=== PATIENT | female | born 1935 | race Caucasian/White ===

== ENCOUNTER 2021-10-02 11:41 | Inpatient (IN) | payer OTHER ==
[~2021-10-02] VITALS: Ht 154.9 cm; Wt 59.0 kg
[~2021-10-02 11:41] MED LIST: ASA; INSULIN; ISOSORBIDE; LIPITOR; PLAVIX
--- NOTE | 2021-10-02 11:53 | NUR ---
BIB WHEELCHAIR TO ER BED 6
--- NOTE | 2021-10-02 11:55 | NUR ---
PATIENT PLACED IN GOWN ON PORTABLE TELE MONITOR, TAKEN TO CT FOR CODE BRAIN PER DR. GLORIA. RN AND BUILDING TRADES TEACHER ACCOMPANIED DAY CAMP UNIT LEADER.
[2021-10-02 12:00] VITALS: BP 149/56
--- NOTE | 2021-10-02 12:37 | NUR ---
86/F BIB DAUGHTER WITH C/O WEAKNESS AND DIZZINESS SINCE THIS MORNING. PER DAUGHTER PATIENT CALLED HER THIS MORNING STATING "I DONT FEEL LIKE MYSELF." FURTHER STATING PATIENT WAS FORGETTING THINGS EASILY WHICH IS NOT AT BASELINE FOR PATIENT. PATIENT DENIES BLURRED VISION, CP, SOB, N/V/D. PATIENT UNABLE TO RECALL DATE BUT IS ALERT TO SELF AND SITUATION.
--- NOTE | 2021-10-02 12:51 | NUR ---
ATTEMPTED COLLECT URINE . WALKED PT AND ASSISTED BUT WAS UNABLE TO COLLECT.
--- NOTE | 2021-10-02 12:52 | NUR ---
WALKED OVER NAKUL TEST TO LAB
[2021-10-02 13:04] LABS: BASOPHILS # (AUTO) 0.1 K/uL (0.00-0.22); EOSINOPHILS # (AUTO) 0.1 K/uL (0-0.4); EOSINOPHILS % (AUTO) 0.9 % (0.0-4.0); HEMATOCRIT 40.7 % (36-48); HEMOGLOBIN 13.5 g/dL (12.0-16.0); LYMPHOCYTES # (AUTO) 2.9 K/uL (2.5-16.5); LYMPHOCYTES % (AUTO) 32.2 % (20.5-51.1); MEAN CORPUSCULAR HEMOGLOBIN 29 pg (27-31); MEAN CORPUSCULAR HGB CONC 33 g/dL (33-37); MEAN CORPUSCULAR VOLUME 88.3 fL (80-94); MONOCYTES # (AUTO) 0.8 K/uL (0.8-1.0); MONOCYTES % (AUTO) 8.7 % (1.7-9.3); NEUTROPHILS # (AUTO) 5.2 K/uL (1.8-7.7); NEUTROPHILS % (AUTO) 57.2 % (42.2-75.2); PLATELET COUNT (AUTO) 162 K/uL (140-450); RED BLOOD CELL COUNT(AUTO) 4.61 MIL/uL (4.20-5.40); RED CELL DISTRIBUTION WIDTH 14.7 % (11.6-13.7); WHITE BLOOD COUNT (AUTO) 9.1 K/uL (4.8-10.8)
--- NOTE | 2021-10-02 13:04 | NUR ---
Pilar honeycutt in [facility] - 10/02/21 at 1314 by MEDRJJ ALFREDO BAH AT THIS TIME
--- NOTE | 2021-10-02 13:13 | NUR ---
PT AMB TO [facility] W/O ASST, UA DONE. GAIT-WNL
[2021-10-02 13:15] LABS: ALBUMIN 3.4 g/dL (3.4-5.0); ANION GAP 12.8 (8-16); ASPARTATE AMINOTRANSFERASE 14 U/L (15-37); CARBON DIOXIDE 26.3 mmol/L (21-32); CHLORIDE 104 mmol/L (98-107); CREATININE 0.7 mg/dL (0.6-1.3); GLUCOSE 265 mg/dL (74-106); POTASSIUM 4.1 mmol/L (3.5-5.1); SODIUM SERUM 139 mmol/L (136-145); TOTAL BILIRUBIN 0.4 mg/dL (0.0-1.0); UREA NITROGEN, BLOOD 14 mg/dL (7-18)
[2021-10-02 13:19] LABS: PROTHROMBIN TIME 9.4 secs (10.8-13.4)
--- NOTE | 2021-10-02 13:30 | NUR ---
UA SENT TO LAB
[2021-10-02 13:33] LABS: APPEARANCE,URINE SL CLOUDY (CLEAR); BILIRUBIN,URINE NEGATIVE (NEGATIVE); BLOOD, URINE TRACE-I (NEGATIVE); COLOR,URINE YELLOW (YELLOW); LEUKOCYTE ESTERASE ,URINE 2+ (NEGATIVE); NITRITE, URINE NEGATIVE (NEGATIVE); UGLUCOSE 3+ (NEGATIVE)
[2021-10-02 13:37] LABS: RBC,URINE 0-5 /HPF (0-5); WBC,URINE 16-25 (MOD) /HPF (0-5)
[2021-10-02] MEDS ORDERED: cefTRIAXone 1,000 MG VIAL ONE (13:48)
--- NOTE | 2021-10-02 14:26 | NUR ---
RX ROCEPHIN FINISHED. PT TOLERATED WELL
[2021-10-02] MEDS ORDERED: DEXTROSE 50% 50 ML SYR IVP PRN (15:40)
[2021-10-02] MEDS ORDERED: DOCUSATE SODIUM 100 MG GELCAP PO PRN (15:40)
[2021-10-02] MEDS ORDERED: ACETAMINOPHEN 325 MG TAB PO PRN (15:40)
[2021-10-02] MEDS ORDERED: HYDROcodone/APAP 5/325 MG 1 TAB TAB PO PRN (15:40)
[2021-10-02] MEDS ORDERED: POTASSIUM CHLORIDE 10 MEQ TABER PO PRN (15:40)
[2021-10-02] MEDS ORDERED: SODIUM PHOS / POTASSIUM PHOS 1 PKT PDR PO PRN (15:40)
[2021-10-02] MEDS ORDERED: MORPHINE SULFATE 2 MG/ML SYR IVP PRN (15:40)
[2021-10-02] MEDS ORDERED: hydrALAZINE 10 MG TAB PO PRN (15:40)
[2021-10-02] MEDS ORDERED: ONDANSETRON 4 MG/2 ML VIAL IM/IVP PRN (15:40)
[2021-10-02] MEDS ORDERED: MAGNESIUM OXIDE 400 MG TAB PO PRN (15:40)
--- NOTE | 2021-10-02 16:15 | NUR ---
RECEIVED PHONE REPORT FROM ER NURSE, WAITING PATIENT TRANSFER TO UNIT.
[2021-10-02 16:17] LABS: MAGNESIUM 1.8 mg/dL (1.8-2.4); PHOSPHORUS 2.7 mg/dL (2.5-4.9)
--- NOTE | 2021-10-02 16:18 | NUR ---
Patient will be admitted to care of DR. NELSON . Admited to TELE. Will go to room 111A. Belongings list completed. Report to COTY.
[2021-10-02 16:37] VITALS: BP 148/65
[2021-10-02] MEDS: NACL 0.9% 1,000 ML IV SCH (16:49)
[2021-10-02] MEDS: BLOOD GLUCOSE MONITORING 1 DEV DEV FS SCH ×2 (16:49→21:16)
--- NOTE | 2021-10-02 17:30 | NUR ---
RECEIVED PATIENT FROM ER. CC WEAKNESS, DIZZINESS. DX TIA, UTI. PATIENT AWAKE, ALERT, ORIENTED TO NAME, DATE, SITUATION. NO FACIAL DROOPING OR WEAKNESS ON EXTREMITIES. RESPIRATORY EVEN AND UNLABORED, ON ROOM AIR. NO SIGN OF DISTRESS NOTED. LUNG SOUND CLEAR TO AUSCULTATE. SKIN WARM, DRY, NON DIAPHORETIC. PACEMAKER NOTED ON LEFT UPPER CHEST. IV ON LEFT AC 20G, INTACT AND PATENT, IS INFUSING FLUID ORDER. ABDOMEN SOFT, NON DISTENDED. BOWEL SOUND ACTIVE TO ALL QUADRANTS. PATIENT DENIES ANY PAIN OR DISCOMFORT. DENIES ANY HEADACHE, DIZZINESS, OR BLURRY VISION AT THIS TIME. ABLE TO AMBULATE WITH CANE AND ASSISTANCE. ABLE TO MAKE NEED KNOWN. ORIENTED TO ROOM AND UNIT. MRSA COLLECTED, PATIENT TOLERATED WELL. PRECAUTION IN PLACE. CALL LIGHT WITHIN REACH. WILL CONTINUE TO MONITOR.
--- NOTE | 2021-10-02 19:00 | NUR ---
PATIENT'S FAMILY AT BEDSIDE.
--- NOTE | 2021-10-02 19:23 | NUR ---
ENDORSED PATIENT TO OLDER ADULT SOCIAL WORK SPECIALIST NURSE FOR CONTINUITY OF CARE. PATIENT IS STABLE.
--- NOTE | 2021-10-02 19:24 | NUR ---
RECEIVED REPORT FROM AM NURSE. PATIENT IS WELL RESTED. NO SOB NOTED. NO COMPLAINTS OF PAIN AT THIS TIME. IV INFILTRATED ON THE LAC. ALL SAFETY PRECAUTIONS ARE IN PLACE. DAUGHTER IS AT BEDSIDE. CALL LIGHT WITHIN REACH. WILL CONTINUE TO MONITOR.
[2021-10-02 20:00] VITALS: BP 118/66
--- NOTE | 2021-10-02 21:00 | NUR ---
INSERTED A NEW PERIPHERAL IV ON THE RIGHT WRIST. TOLERATED WELL.
[2021-10-02] MEDS: INSULIN LISPRO SLIDING SCALE 100 UNITS/ML VIAL SUBQ PRN (21:16)
--- NOTE | 2021-10-02 21:16 | NUR ---
BLOOD SUGAR CHECKED 203, ADMINISTERED HUMALOG ORDERED PER SLIDING SCALE.
[2021-10-03] VITALS: BP 135/68
[2021-10-03 04:00] VITALS: BP 142/78
--- NOTE | 2021-10-03 04:08 | NUR ---
ROUNDED PATIENT, PT IS SLEEPING. NO SOB NOTED. SAFETY MEASURES IN PLACE. CALL LIGHT WITHIN REACH.
[2021-10-03 06:51] LABS: CARBON DIOXIDE 25.2 mmol/L (21-32); CHLORIDE 107 mmol/L (98-107); CREATININE 0.7 mg/dL (0.6-1.3); GLUCOSE 162 mg/dL (74-106); POTASSIUM 4.2 mmol/L (3.5-5.1); SODIUM SERUM 142 mmol/L (136-145); UREA NITROGEN, BLOOD 15 mg/dL (7-18)
[2021-10-03 06:58] LABS: BASOPHILS # (AUTO) 0.1 K/uL (0.00-0.22); EOSINOPHILS # (AUTO) 0.1 K/uL (0-0.4); HEMATOCRIT 39.1 % (36-48); HEMOGLOBIN 13.1 g/dL (12.0-16.0); LYMPHOCYTES # (AUTO) 3.6 K/uL (2.5-16.5); LYMPHOCYTES % (AUTO) 41.5 % (20.5-51.1); MEAN CORPUSCULAR HEMOGLOBIN 29 pg (27-31); MEAN CORPUSCULAR HGB CONC 33 g/dL (33-37); MEAN CORPUSCULAR VOLUME 87.4 fL (80-94); MONOCYTES # (AUTO) 0.8 K/uL (0.8-1.0); MONOCYTES % (AUTO) 9.4 % (1.7-9.3); NEUTROPHILS % (AUTO) 47.1 % (42.2-75.2); PLATELET COUNT (AUTO) 184 K/uL (140-450); RED BLOOD CELL COUNT(AUTO) 4.48 MIL/uL (4.20-5.40); WHITE BLOOD COUNT (AUTO) 8.6 K/uL (4.8-10.8)
--- NOTE | 2021-10-03 07:13 | NUR ---
RECEIVED REPORT FROM RAIL CAR LOADER NURSE FOR CONTINUITY OF CARE. NO S/S OF DISTRESS. IV RUNNING PER MD ORDER. CALL LIGHT IN REACH. ALL SAFETY MEASURES IN PLACE. HELPED PT TO RESTROOM
--- NOTE | 2021-10-03 07:16 | NUR ---
ENDORSED PATIENT TO AM NURSE FOR CONTINUITY OF CARE. PATIENT IS STABLE
[2021-10-03] MEDS: BLOOD GLUCOSE MONITORING 1 DEV DEV FS SCH ×4 (07:40→21:24)
[2021-10-03] MEDS: INSULIN LISPRO SLIDING SCALE 100 UNITS/ML VIAL SUBQ PRN ×4 (07:40→21:28)
[2021-10-03 08:00] VITALS: BP 139/79
[2021-10-03] MEDS: PANTOPRAZOLE 40 MG INJ VIAL IVP SCH (08:20)
[2021-10-03] MEDS: NACL 0.9% 1,000 ML IV SCH (08:20)
[2021-10-03] MEDS: amLODIPine 5 MG TAB PO SCH (08:20)
--- NOTE | 2021-10-03 09:05 | NUR ---
PATIENT HAS BEEN SCREENED AND CATEGORIZED LOW NUTRITION RISK. PATIENT WILL BE SEEN WITHIN 7 DAYS OF ADMISSION. 10/09/[address]
--- NOTE | 2021-10-03 10:26 | NUR ---
PT RESTING IN BED. PT STABLE. NO S/S OF DISTRESS. BREATHING SYMMETRICAL. CALL LIGHT IN REACH. PT DENIES PAIN AT THIS TIME. ALL SAFETY MEASURES IN PLACE. IV RUNNING PER MD ORDERS
--- NOTE | 2021-10-03 12:45 | NUR ---
DC PLANN[age] YRS OLD FEMALE PATIENT WAS ADMITTED FROM HOME WITH A DX OF TIA, AND UTI. PATIENT HAS A HX OF CARDIA DISORDER DM,HTN. CT BRAIN SHOWED NO ACUTE INTRACRANIAL HEMORRHAGE. C XRAY SHOWED NO ACUTE CARDIOPULMONARY DISEASE. ADMINISTERED IVF, IV ABX ROCEPHIN AND CONTINUED HOME MEDS. CONSULTED WITH NEUROLOGIST. DC PLAN TO GO HOME WHEN STABLE CM TO FOLLOW Addendum: 10/03/21 at 1636 by Lindsey Potter CM PATIENT IS AN 86-YEAR-OLD FEMALE ADMITTED ON A 10/02/2021 FROM THE [facility]/ED DUE TO COMPLAINS OF WEAKNESS, DIZZINESS, PATIENT HAS PASS OUT AND FALL. PATIENT'S DAUGHTER REPORTED THAT PATIENT SEEMS DISORIENTED AT TIMES. SHIRA MET WITH PATIENT AT BEDSIDE SHE WAS AWAKE AND ABLE TO DISCUSS AND GATHER HER COLLATERAL INFORMATION. PATIENT REPORTED LIVING AT HOME WITH HER DAUGHTER JAYCEE WILLSON AND SOMETIMES WITH HER DAUGHTER SABRINA ORLANDO WHO ARE PATIENT'S EMERGENCY CONTACTS AND ALSO ARE THE ONES THAT ARE HER MEDICAL DECISION MAKERS. PER PATIENT SHE HAS NO ADVANCE DIRECTIVES AND WAS INTERESTED ON GETTING ADVANCE DIRECTIVES INF. PACKET PROVIDED BY SHIRA. PATIENT REPORTED NOT HAVING ANY ISSUES GETTING OR TAKING HER MEDICATIONS FROM THE [facility] AND [place] IN [facility]. PATIENT STATED THAT SHE A WALKER AND A WHEELCHAIR AT HOME HER DME. SHIRA INFORMED PATIENT THAT A FOLLOW UP APPOINTMENT WILL BE SCHEDULED BY THESE ADJUDICATION SPECIALIST AT TIME OF DC FROM [facility]. PATIENT AGREED AND REPORTED THAT HER PCP IS MD. MCDONOUGH AND THAT HER LAST VISIT WITH WAS ABOUT A MONTH AGO. PATIENT STATED THAT HER DAUGHTERS WILL BE PICKING HER UP AND TAKE HER BACK HOME AFTER HER DC FROM [facility]. SW THANK HER FOR THE INFORMATION AND LEFT HER ROOM. SW WILL FOLLOW UP NEEDED.
--- NOTE | 2021-10-03 13:20 | NUR ---
PT RESTING IN BED. FAMILY AT BEDSIDE. PT STABLE. NO S/S OF DISTRESS. BREATHING SYMMETRICAL. CALL LIGHT IN REACH. PT DENIES PAIN AT THIS TIME. ALL SAFETY MEASURES IN PLACE. IV RUNNING PER MD ORDERS
[2021-10-03 14:21] VITALS: BP 160/84
--- NOTE | 2021-10-03 16:42 | NUR ---
PT RESTING IN BED. PT STABLE. NO S/S OF DISTRESS. BREATHING SYMMETRICAL. CALL LIGHT IN REACH. ALL SAFETY MEASURES IN PLACE. IV RUNNING PER MD ORDERS. BG 165, COVERAGE NEEDED.
--- NOTE | 2021-10-03 19:10 | NUR ---
ENDORSED PT VIOLIN TUTOR NURSE. PT STABLE. NO S/S OF DISTRESS. BREATHING SYMMETRICAL. CALL LIGHT IN REACH. ALL SAFETY MEASURES IN PLACE.
--- NOTE | 2021-10-03 19:11 | NUR ---
RECEIVED REPORT FROM AM NURSE. PATIENT IS WELL RESTED. NO SOB NOTED. BREATHING REGULAR NON LABORED. IVF NS RUNNING AT 60 ML TOLERATING WELL. ALL SAFETY PRECAUTIONS ARE IN PLACE. DAUGHTER AT BEDSIDE. NO COMPLAINTS OF PAIN AT THIS TIME. CALL LIGHT WITHIN REACH. DAUGHTER WOULD LIKE TO INFORM THE ATTENDING REGARDING HOME MEDS THE PATIENT IS TAKING AT HOME.
[2021-10-03 20:00] VITALS: BP 131/60
--- NOTE | 2021-10-03 20:07 | NUR ---
TEXTED DR WINKLER THE MEDS THE PATIENT IS TAKING AT HOME. DR WINKLER REPLIED AT 2026 SAYING HE WILL CHECK IT OVER.
[2021-10-03] MEDS ORDERED: GABA100C PO (21:13)
[2021-10-03] MEDS ORDERED: METF-350 PO (21:13)
[2021-10-03] MEDS ORDERED: OMEP20EC11 PO (21:13)
[2021-10-03] MEDS ORDERED: MECL-303 PO (21:13)
[2021-10-03] MEDS ORDERED: CARV6.25 PO (21:13)
--- NOTE | 2021-10-03 21:17 | NUR ---
HEPARIN ADMINISTERED SCHEDULED PER MD ORDERED.
--- NOTE | 2021-10-03 21:24 | NUR ---
BLOOD SUGAR CHECKED 179 , HUMALOG GIVEN ORDERED PER SLIDING SCALE.
[2021-10-03] MEDS: carvediloL 6.25 MG TAB PO SCH (21:53)
[2021-10-04] VITALS: BP 106/50
[2021-10-04] MEDS: NACL 0.9% 1,000 ML IV SCH ×3 (01:00→17:57)
--- NOTE | 2021-10-04 03:16 | NUR ---
ROUNDING PATIENT, PT IS SLEEPING. NO SOB NOTED. CALL LIGHT WITHIN REACH.
[2021-10-04 04:00] VITALS: BP 134/56
[2021-10-04 06:00] LABS: BASOPHILS # (AUTO) 0.1 K/uL (0.00-0.22); BASOPHILS % (AUTO) 1.1 % (0.0-2.0); EOSINOPHILS # (AUTO) 0.1 K/uL (0-0.4); EOSINOPHILS % (AUTO) 1.3 % (0.0-4.0); HEMATOCRIT 36.2 % (36-48); HEMOGLOBIN 12.1 g/dL (12.0-16.0); MEAN CORPUSCULAR HEMOGLOBIN 29 pg (27-31); MEAN CORPUSCULAR HGB CONC 33 g/dL (33-37); MEAN CORPUSCULAR VOLUME 87.2 fL (80-94); MONOCYTES # (AUTO) 0.7 K/uL (0.8-1.0); MONOCYTES % (AUTO) 10.5 % (1.7-9.3); NEUTROPHILS # (AUTO) 3.1 K/uL (1.8-7.7); NEUTROPHILS % (AUTO) 44.1 % (42.2-75.2); PLATELET COUNT (AUTO) 164 K/uL (140-450); RED BLOOD CELL COUNT(AUTO) 4.16 MIL/uL (4.20-5.40); RED CELL DISTRIBUTION WIDTH 14.8 % (11.6-13.7)
[2021-10-04 06:10] LABS: ANION GAP 11.2 (8-16); CARBON DIOXIDE 26.7 mmol/L (21-32); CHLORIDE 107 mmol/L (98-107); CREATININE 0.7 mg/dL (0.6-1.3); GLUCOSE 186 mg/dL (74-106); POTASSIUM 3.9 mmol/L (3.5-5.1); SODIUM SERUM 141 mmol/L (136-145); UREA NITROGEN, BLOOD 17 mg/dL (7-18)
--- NOTE | 2021-10-04 06:40 | NUR ---
BLOOD GLUCOSE CHECKED 168. WILL ENDORSE TO AM SHIFT NURSE FOR COVERAGE.
--- NOTE | 2021-10-04 07:31 | NUR ---
ENDORSED TO AM SHIFT NURSE FOR CONTINUITY OF CARE. PATIENT IS STABLE.
--- NOTE | 2021-10-04 07:32 | NUR ---
RECEIVED REPORT FROM INDUSTRIAL SEWER NURSE FOR CONTINUITY OF CARE. PATIENT IS IN BED AT THIS TIME SLEEPING. RESPIRATIONS ARE EVEN AND UNLABORED. NO SIGNS OF DISTRESS NOTED. PER INDUSTRIAL SEWER, BLOOD GLUCOSE THIS MORNING WAS 168. AM SHIFT WILL COVER. ALL SAFETY MEASURES IN PLACE. CALL LIGHT WITHIN REACH. WILL CONTINUE TO MONITOR.
[2021-10-04 08:00] VITALS: BP 136/68
[2021-10-04] MEDS: BLOOD GLUCOSE MONITORING 1 DEV DEV FS SCH ×4 (08:07→21:00)
[2021-10-04] MEDS: INSULIN LISPRO SLIDING SCALE 100 UNITS/ML VIAL SUBQ PRN ×4 (08:15→23:54)
[2021-10-04] MEDS: PANTOPRAZOLE 40 MG INJ VIAL IVP SCH (08:16)
[2021-10-04] MEDS: carvediloL 6.25 MG TAB PO SCH ×2 (08:17→21:00)
--- NOTE | 2021-10-04 08:17 | NUR ---
ADMINISTERED ALL SCHEDULED MEDICATIONS. EDUCATED PATIENT ON MEDICATIONS ADMINISTERED AND SIDE EFFECTS OF MEDICATIONS. PATIENT STATED AN UNDERSTANDING OF INFORMATION PROVIDED. WILL CONTINUE TO MONITOR. CALL LIGHT WITHIN REACH. ALL SAFETY MEASURES IN PLACE.
[2021-10-04] MEDS: amLODIPine 5 MG TAB PO SCH (08:18)
--- NOTE | 2021-10-04 11:03 | NUR ---
PATIENT IS IN BED AT THIS TIME, FAMILY AT BEDSIDE. PATIENT IS ALERT AND ORIENTED X2-3. PATIENT IS ON ROOM AIR, NO SIGNS OF DISTRESS NOTED. RESPIRATIONS ARE EVEN AND UNLABORED, SAT IS 97. PATIENT IS ABLE TO AMBULATE WITH CANE. SHE IS CONTINENT OF BOWEL AND BLADDER. ABD IS SOFT, TENDER, NON-DISTENDED WITH BOWEL SOUNDS PRESENT. PATIENT HAS IV TO R WRIST, 24G. IV IS INTACT AND PATENT. IV INFUSING NS AT 60ML/HR. SKIN IS WARM, DRY, AND INTACT. NO COMPLAINTS OF PAIN OR DISCOMFORT AT THIS TIME. WILL CONTINUE TO MONITOR. CALL LIGHT WITHIN REACH. ALL SAFETY MEASURES IN PLACE.
--- NOTE | 2021-10-04 11:57 | NUR ---
BLOOD GLUCOSE WAS 238. COVERED WITH 4 UNITS INSULIN PER SLIDING SCALE. WILL CONTINUE TO MONITOR.
[2021-10-04 12:00] VITALS: BP 116/54
--- NOTE | 2021-10-04 14:57 | NUR ---
DID ROUNDS ON PATIENT. FAMILY AT BEDSIDE. RESPIRATION ARE EVEN AND UNLABORED. NO COMPLAINTS OF PAIN OR DISCOMFORT. WILL CONTINUE TO MONITOR.
[2021-10-04 16:00] VITALS: BP 109/58
--- NOTE | 2021-10-04 17:35 | NUR ---
ASSIST PATIENT TO RESTROOM. PATIENT TOLERATED WELL. NO COMPLAINTS OF PAIN OR DISCOMFORT. WILL CONTINUE TO MONITOR.
--- NOTE | 2021-10-04 19:13 | NUR ---
ENDORSED PATIENT TO COLLATERAL SPECIALIST NURSE FOR CONTINUITY OF CARE. PATIENT STABLE.
[2021-10-04 20:00] VITALS: BP 124/62
[2021-10-05] VITALS: BP 122/64
--- NOTE | 2021-10-05 01:49 | NUR ---
PATIENT AWAKE ALERT [place] MOSTLY SPEAKING LUNGS CLEAR TO HEAR ON MONITOR PACING HEART RATE 70 TEMP98.5 HAS NO SKIN BREAK DOWN BLOOD SUGAR 202 GIVEN 4 UNITS OF HUMALOG S.Q. HAS 24 GA RT. WRIST NO SIGNS OF DISTRESS.
[2021-10-05 04:00] VITALS: BP 120/64
[2021-10-05 06:16] LABS: BASOPHILS # (AUTO) 0.1 K/uL (0.00-0.22); EOSINOPHILS # (AUTO) 0.1 K/uL (0-0.4); EOSINOPHILS % (AUTO) 1.3 % (0.0-4.0); HEMATOCRIT 36.1 % (36-48); HEMOGLOBIN 12.1 g/dL (12.0-16.0); LYMPHOCYTES % (AUTO) 39.6 % (20.5-51.1); MEAN CORPUSCULAR HEMOGLOBIN 29 pg (27-31); MEAN CORPUSCULAR HGB CONC 34 g/dL (33-37); MEAN CORPUSCULAR VOLUME 87.5 fL (80-94); MONOCYTES # (AUTO) 0.8 K/uL (0.8-1.0); MONOCYTES % (AUTO) 10.2 % (1.7-9.3); NEUTROPHILS # (AUTO) 3.6 K/uL (1.8-7.7); NEUTROPHILS % (AUTO) 47.9 % (42.2-75.2); PLATELET COUNT (AUTO) 153 K/uL (140-450); RED BLOOD CELL COUNT(AUTO) 4.13 MIL/uL (4.20-5.40); RED CELL DISTRIBUTION WIDTH 14.7 % (11.6-13.7); WHITE BLOOD COUNT (AUTO) 7.5 K/uL (4.8-10.8)
--- NOTE | 2021-10-05 07:15 | NUR ---
RECEIVED REPORT FROM MUD ANALYSIS WELL LOGGING CAPTAIN NURSE FOR CONTINUITY OF CARE. PATIENT IN BED SLEEPING AT THIS TIME. RESPIRATIONS ARE EVEN AND UNLABORED. NO SIGNS OF DISTRESS NOTED. PATIENT IS ALERT AND ORIENTED X3. PATIENT IS LAO SPEAKING ONLY. PATIENT IS ON ROOM AIR. PATIENT ABD IS SOFT, NON-TENDER, NON-DISTENDED WITH BOWEL SOUNDS PRESENT. PATIENT IS ON CCHO DIET. LAST BLOOD GLUCOSE WAS 172. COVERED WITH 2 UNITS. PATIENT HAS IV TO R WRIST 24 G. IV IS INTACT AND PATIENT. PATIENT SKIN IS INTACT. SKIN IS WARM AND DRY. NO COMPLAINTS OF PAIN OR DISCOMFORT. WILL CONTINUE TO MONITOR. CALL LIGHT WITHIN REACH. ALL SAFETY MEASURES IN PLACE.
[2021-10-05] MEDS: BLOOD GLUCOSE MONITORING 1 DEV DEV FS SCH ×3 (07:44→16:58)
[2021-10-05] MEDS: INSULIN LISPRO SLIDING SCALE 100 UNITS/ML VIAL SUBQ PRN ×2 (07:48→12:02)
[2021-10-05 08:00] VITALS: BP 122/65
[2021-10-05] MEDS: amLODIPine 5 MG TAB PO SCH (09:00)
[2021-10-05] MEDS: carvediloL 6.25 MG TAB PO SCH (09:24)
--- NOTE | 2021-10-05 09:24 | NUR ---
ALL SCHEDULED MEDICATIONS ADMINISTERED. EDUCATED PATIENT ON MEDICATIONS ADMINISTERED AND SIDE EFFECTS. PATIENT VERBALIZED AN UNDERSTANDING OF INFORMATION PROVIDED. WILL CONTINUE TO MONITOR.
[2021-10-05] MEDS: PANTOPRAZOLE 40 MG INJ VIAL IVP SCH (09:54)
--- NOTE | 2021-10-05 09:58 | NUR ---
DISCUSSED AND REVIEWED PLAN OF CARE WITH NORMA MORELOS. DC ORDER PLACED FOR TODAY. NO S/S OF DISTRESS. CALL LIGHT IN REACH ALL SAFETY MEASURES IN PLAN. MEDICATED PT PER MD ORDER. PT VERBALIZED UNDERSTANDING OF EDUCATION
[2021-10-05 10:00] LABS: ANION GAP 10.9 (8-16); CARBON DIOXIDE 25.8 mmol/L (21-32); CHLORIDE 108 mmol/L (98-107); CREATININE 0.7 mg/dL (0.6-1.3); GLUCOSE 188 mg/dL (74-106); POTASSIUM 3.7 mmol/L (3.5-5.1); SODIUM SERUM 141 mmol/L (136-145); UREA NITROGEN, BLOOD 17 mg/dL (7-18)
[2021-10-05] MEDS ORDERED: AMLO-3 PO (10:00)
[2021-10-05] MEDS: NACL 0.9% 1,000 ML IV SCH (10:20)
--- NOTE | 2021-10-05 11:44 | NUR ---
BLOOD GLUCOSE AT 259. COVERED WITH 2 UNITS OF INSULIN. EDUCATED PATIENT ON BLOOD GLUCOSE READING AND ADMINISTRATION OF INSULIN. PATIENT STATED AN UNDERSTANDING OF INFORMATION PROVIDED. Addendum: 10/05/21 at 1435 by Mariam Anthony LVN BLOOD GLUCOSE AT 259. COVERED WITH 6 UNITS OF INSULIN.
[2021-10-05 12:00] VITALS: BP 109/58
--- NOTE | 2021-10-05 12:55 | NUR ---
DISCHARGE ORDER IN PLACE. PER DR, PATIENT MAY DC TODAY ONCE ECHO IS CLEARED. PATIENT IS AWARE. SPOKE TO PATIENT FAMILY, WHO WAS AT BEDSIDE.
--- NOTE | 2021-10-05 13:20 | NUR ---
DISCHARGE ORDER IN PLACE. PER MD PATIENT MAY DISCHARGE TODAY AFTER ROCEPHIN ADMINISTRATION AND IF OK TO DC WITH CARDIO DUE TO POSSIBLE ECHO.
--- NOTE | 2021-10-05 14:32 | NUR ---
IV MEDICATION ROCEPHIN ADMINISTERED BY RN. WILL CONTINUE TO MONITOR.
[2021-10-05 16:00] VITALS: BP 135/66
--- NOTE | 2021-10-05 16:31 | NUR ---
NO ECHO REQUIRED PER MACHINE TAPER. PATIENT OK TO DISCHARGE.
--- NOTE | 2021-10-05 16:55 | NUR ---
BLOOD GLUCOSE 135. NO INSULIN COVERAGE NEEDED.
[2021-10-05 17:14] VITALS: BP 135/66
--- NOTE | 2021-10-05 18:25 | NUR ---
DISCHARGE ORDER IN PLACE. WENT OVER DISCHARGE PAPERWORK WITH PATIENT. EXPLAINED MEDICATIONS TO PATIENT. PATIENT STATED AN UNDERSTANDING OF INFORMATION PROVIDED. PATIENTS DAUGHTER STATED SHE PLANS ON TAKING HER TO FOLLOW UP WITH HER PRIMARY PHYSICIAN IN THE NEXT 2 WEEKS. IV REMOVED. IV CATHETER IN TACT. WRIST BAND REMOVED. PATIENT DISCHARGED HOME. ALL BELONGINGS TAKEN WITH PATIENT.
== END 2021-10-05 18:25 | disposition home health service (06) | DRG 69 ==
LOC: MED 11:41 → MTU 15:08
PROVIDERS: ADMIT Hospitalist; ATTEND Hospitalist
DX: G45.9 Transient cerebral ischemic attack, unspecified (principal); G93.41 Metabolic encephalopathy; N39.0 Urinary tract infection, site not specified; Z20.822 Contact with and (suspected) exposure to COVID-19; I25.10 Atherosclerotic heart disease of native coronary artery without angina pectoris; E78.5 Hyperlipidemia, unspecified; Z86.73 Personal history of transient ischemic attack (TIA), and cerebral infarction without residual deficits; Z90.49 Acquired absence of other specified parts of digestive tract
CPT/HCPCS: 36415; 70450; 71045; 80048; 80053; 81001; 82140; 82948; 83735; 83880; 84100; 84484; 85025; 85610; 85730; 87081; 87086; 93005; 93308; 93880; 96365; 97116; 97163-GP; 99291; C9113; J0696; J1644; J1815; J7060; Q0092